=== PATIENT | male | born 1995 | race Caucasian/White ===

== ENCOUNTER 2017-04-26 16:36 | Emergency (ER) | payer OTHER ==
[~2017-04-26] VITALS: Ht 177.8 cm; Wt 84.1 kg
[~2017-04-26 16:36] MED LIST: GUAN1TAB PO; METH1TAB18 PO
[2017-04-26 16:41] VITALS: TEMP 37.3; Ht 177.8 cm; Wt 84.1 kg
--- NOTE | 2017-04-26 17:47 | DIAGNOSTIC IMAGING REPORT ---
RIGHT ANKLE 3 VIEWS CLINICAL HISTORY: Right ankle injury. FINDINGS: 3 views of the right ankle are obtained. No prior studies are available for comparison at the time of dictation. The skeletal structures are well mineralized. No fracture is seen. The ankle mortise is intact. There is a joint effusion. Soft tissue swelling is present around the ankle. IMPRESSION: Soft tissue swelling and joint effusion. No right ankle fracture is seen. Electronically signed by: Mac Carrington M.D. 04/26/2017 5:45 PM Dictated Date/Time: 04/26/2017 5:44 PM
[2017-04-26 18:31] VITALS: BP 107/59; PULSE 80; O2SAT 99
[2017-04-26] MEDS ORDERED: ACET-1256 PO (18:33)
--- NOTE | 2017-04-27 15:22 | EMERGENCY ROOM VISIT NOTE ---
ED Visit Note First contact with patient: 17:01 Chief Complaint: Right ankle pain. History of Present Illness: Mr. Moreno is a 21-year-old white male who ambulates into the ED on crutches accompanied by female friend complaining of right lateral ankle pain. Patient reports approximately 24 hours ago he was helping cut down a tree. He reports he jumped down from a branch to the ground and when he did he twisted his right ankle. From his description of the injury this appears to be inversion. He reports since that time he has had pain and swelling over the lateral aspect of the ankle and feels like the "ankle is loose". Currently he describes his ankle pain as a throbbing sensation. His discomfort is located over the lateral malleolus, predominantly over the posterior and inferior ligamentous structures. He rates his discomfort 5/10. When he is nonweightbearing are no one is palpating his foot his pain is less when he is up and ambulating his pain increases. He has not taken any medications for pain prior to arrival at the hospital. He denies any associated symptoms including hip, knee pain, lower leg pain, foot pain, leg weakness/numbness/ tingling. Additionally grandmother denies any previous significant injuries or surgeries. Review of Systems: As noted above in history of present illness. Past Medical History: Status post appendectomy. Current Medications: Patient denies. Allergies to Medications: Patient denies. Social History: Patient is not employed; he feels safe in his home environment; he denies tobacco and alcohol use. Physical Examination: Vital Signs: Date Time Temp Pulse Resp B/P Pulse Ox O2 Delivery O2 Flow Rate FiO2 04/26/17 18:31 80 16 107/59 99 04/26/17 16:41 37.3 89 18 138/71 98 Room Air GENERAL: 21-year-old male in mild distress due to pain, nontoxic-appearing, afebrile and hemodynamically stable. NEUROLOGICAL: Awake, alert and oriented to person, place and time. Answering questions appropriately and following commands. SKIN: Warm, dry and pink. No open soft tissue trauma noted. RIGHT LOWER EXTREMITY: No gross bony deformity. No tenderness in the hip, knee , lower leg and foot. Moderate tenderness with swelling and ecchymosis over the lateral malleolus. Due to patient's pain ligamentous testing is invalid. He does have full range of motion in plantar flexion and dorsiflexion of the ankle but limited pronation and supination due to pain and swelling. Distal pulses are intact. Capillary refill is brisk. He is intact with light sensations throughout the foot. ED Course: Patient is assessed as noted above. Patient is given ice for pain comfort; he refused pain medications. Right Ankle Pain: Was read by myself and the radiologist showing no acute fractures or dislocations. Patient was placed in a gel splint and crutches he brought into the ED were adjusted for his height any restrained appropriately. Patient grandmother were educated about today's findings and instructed on his treatment plan; they verbalized understanding and agreement with this plan. Clinical Impression: Right ankle sprain. Disposition: Patient discharged home in stable condition accompanied by his grandmother; prior to departure he was reassessed and subjectively reported he was feeling better. Plan: Comfort measures including rest, ice, elevation, splint and crutches were discussed with the patient. Patient was encouraged use splint and crutches for 3-6 days or until pain free. Patient was encouraged to follow-up with orthopedics if no better in 7-10 days. Patient was encouraged return ED for worsening/uncontrolled pain, foot weakness/ numbness/tingling or any new/concerning symptoms.
== END 2017-04-26 18:55 | disposition home or self-care (01) ==
LOC: C.EDB 16:37 → C.EDD 18:55
DX: S93.401A Sprain of unspecified ligament of right ankle, initial encounter (principal); X50.1XXA Overexertion from prolonged static or awkward postures, initial encounter; Y92.89 Other specified places as the place of occurrence of the external cause